=== PATIENT | female | born 1985 | race Caucasian/White ===

== ENCOUNTER 2021-06-18 13:39 | Day surgery (SDC) | payer SELFPAY ==
[2021-06-18 14:56] LABS: Fetal Membranes Rupture No Membranes Rupture (No Rupture)
[2021-06-19] MEDS ORDERED: hydrALAZINE 20 MG/ML VIAL SLOW IVP PRN (07:35)
== END 2021-06-18 18:00 | disposition home or self-care (01) ==
LOC: CSHLD/OP 13:39
PROVIDERS: ATTEND Student in an Organized Health Care Education/Training Program
DX: O47.1 False labor at or after 37 completed weeks of gestation (principal); O34.219 Maternal care for unspecified type scar from previous cesarean delivery; Z3A.38 38 weeks gestation of pregnancy; Z91.041 Radiographic dye allergy status
CPT/HCPCS: 84112

== ENCOUNTER 2021-06-25 01:26 | Inpatient (IN) | payer OTHER, SELFPAY ==
[2021-06-25 02:20] LABS: Hemoglobin 13.3 g/dL (12.0-15.5); Mean Corpuscular HGB CONC 33.6 g/dL (32.0-36.0); Mean Corpuscular Volume 95.2 fl (81.6-98.3); Mean Platelet Volume 10.8 fl (7.4-10.4); Platelet Count 185 10x3/uL (150-450); RBC Distribution Width 12.7 % (11.5-14.5); Red Blood Cell (RBC) Count 4.16 10x6/uL (3.90-5.03)
[2021-06-25] MEDS ORDERED: Fentanyl 2 mcg/Bup 0.1% Cadd 100 ML ONE (02:28)
[2021-06-25 02:46] LABS: Hep B Surf Ag Non-Reactive S/CO (NonReactive)
[2021-06-25 02:47] LABS: Syphilis Antibody Nonreactive (Nonreactive); Syphilis Antibody Index 0.02 S/CO (<1.00 Non-Reactive)
[2021-06-25 02:52] LABS: HBSAg Index 0.21 S/CO (0-0.99)
[2021-06-25] MEDS ORDERED: Methylergonovine 0.2 MG/ML VIAL IM PRN (03:00)
[2021-06-25] MEDS ORDERED: Ibuprofen 800 MG TAB PO PRN (03:00)
[2021-06-25] MEDS ORDERED: NS w/ Oxytocin 30 units 500 ML IV SCH ×2 (03:00)
[2021-06-25] MEDS ORDERED: Penicillin G Potassium 5 MILL.UNITS in Sodium Chloride 0.9% 100 ML IVPB SCH (03:00)
[2021-06-25] MEDS ORDERED: Carboprost 250 MCG/ML AMP IM PRN (03:00)
[2021-06-25] MEDS ORDERED: Ondansetron PF 4 MG/2 ML Vial IVP PRN ×3 (03:00→08:36)
[2021-06-25] MEDS ORDERED: NS w/ Oxytocin 30 units 500 ML IVPB SCH (03:00)
[2021-06-25] MEDS ORDERED: Promethazine HCl 25 MG/ML VIAL IM PRN ×3 (03:00→08:36)
[2021-06-25] MEDS ORDERED: Diphenoxylate HCl/Atropine Tablet PO PRN (03:00)
[2021-06-25] MEDS ORDERED: Lidocaine 1% (PF) 30 ML VIAL SC PRN (03:00)
[2021-06-25] MEDS ORDERED: Misoprostol 200 MCG TAB RC PRN (03:00)
[2021-06-25] MEDS ORDERED: HYDROcodone/Acetaminophen 5/325 mg Tablet PO PRN ×3 (03:00→08:36)
[2021-06-25] MEDS ORDERED: hydrALAZINE 20 MG/ML VIAL SLOW IVP PRN ×2 (03:00→08:36)
[2021-06-25] MEDS ORDERED: Butorphanol Tartrate 1 MG/ML VIAL SLOW IVP PRN (03:00)
[2021-06-25] MEDS ORDERED: Acetaminophen 500 MG TAB PO PRN (03:00)
[2021-06-25] MEDS ORDERED: Fentanyl 100 MCG/2 ML VIAL ONE (03:46)
[2021-06-25] MEDS ORDERED: diphenhydrAMINE 50 MG/ML VIAL IVP PRN (04:29)
[2021-06-25] MEDS ORDERED: Lactated Ringer's 500 ML IV PRN (04:29)
[2021-06-25] MEDS ORDERED: Hydrocerin (Eucerin) Cream 120 gm Jar TOP PRN (04:29)
[2021-06-25] MEDS ORDERED: Acetaminophen 325 MG TAB PO PRN (04:29)
[2021-06-25] MEDS ORDERED: ePHEDrine Sulfate 50 MG/10 ML VIAL SLOW IVP PRN (04:29)
[2021-06-25] MEDS ORDERED: Naloxone HCl 0.4 mg/ml Vial IVP PRN ×2 (04:29)
[2021-06-25] MEDS ORDERED: Communication Order-Pharmacy FS SCH (04:30)
[2021-06-25] MEDS ORDERED: Fentanyl 2 mcg/Bupivacaine 0.1% Cassette 100 ML EPIDURAL SCH (04:30)
[2021-06-25] MEDS ORDERED: Penicillin G 2.5 MILL.units 50 ML IVPB SCH (07:00)
[2021-06-25 07:03] LABS: SARS-CoV-2 NAA Rapid Test Not Detected (NotDetected)
[2021-06-25] MEDS ORDERED: diphenhydrAMINE 25 MG CAP PO PRN (08:36)
[2021-06-25] MEDS ORDERED: Benzocaine-Menthol 82.5 ML CAN TOP PRN (08:36)
[2021-06-25] MEDS ORDERED: Preparation H Ointment 28 GM TUBE PR PRN (08:36)
[2021-06-25] MEDS ORDERED: Milk Of Magnesia 30 ML UDCUP PO PRN (08:36)
[2021-06-25] MEDS ORDERED: Lanolin Ointment 7 GM TUBE TOP PRN (08:36)
[2021-06-25] MEDS ORDERED: Bisacodyl 10 MG SUPP PR PRN (08:36)
[2021-06-25] MEDS ORDERED: Boostrix 0.5 ML (Tdap) VIAL IM ONE (08:36)
[2021-06-25] MEDS: Ferrous Sulfate 325 MG TAB PO SCH ×2 (10:06→16:55)
[2021-06-25] MEDS: Docusate Calcium (SURFAK) 240 MG CAP PO SCH ×2 (10:45→21:34)
[2021-06-25] MEDS: Prenatal Vitamin 1 TAB PO SCH (10:45)
[2021-06-25] MEDS: Ibuprofen 800 MG TAB PO SCH ×2 (10:45→18:24)
[2021-06-25] MEDS ORDERED: NS w/ Oxytocin 30 units 500 ML ONE (12:10)
[2021-06-25] MEDS: HYDROcodone/Acetaminophen 5/325 mg Tablet PO PRN ×3 (13:03→19:05)
[2021-06-26] MEDS: Ibuprofen 800 MG TAB PO SCH ×2 (03:31→11:35)
[2021-06-26 07:55] VITALS: BP 96/50; TEMP 98
[2021-06-26] MEDS: Prenatal Vitamin 1 TAB PO SCH (08:37)
[2021-06-26] MEDS: Docusate Calcium (SURFAK) 240 MG CAP PO SCH (08:37)
[2021-06-26] MEDS: Ferrous Sulfate 325 MG TAB PO SCH (08:37)
[2021-06-26] MEDS: HYDROcodone/Acetaminophen 5/325 mg Tablet PO PRN (08:41)
== END 2021-06-26 14:10 | disposition home or self-care (01) | DRG 807 ==
LOC: CSHLD/OP 01:26 → CSHLD 02:07 → CSHPP 10:22
PROVIDERS: ADMIT Student in an Organized Health Care Education/Training Program; ATTEND Student in an Organized Health Care Education/Training Program
PROC: 10E0XZZ Delivery of Products of Conception, External Approach (ICD-10-PCS; principal; 2021-06-26)
PROC: 0HQ9XZZ Repair Perineum Skin, External Approach (ICD-10-PCS; 2021-06-26)
DX: O34.211 Maternal care for low transverse scar from previous cesarean delivery (principal); Z37.0 Single live birth; Z3A.39 39 weeks gestation of pregnancy; O70.0 First degree perineal laceration during delivery
CPT/HCPCS: 85027; 86780; 86850; 86900; 86901; 87340; J2405; J2540; J2590; J3010; J3490; U0002

== ENCOUNTER 2023-03-27 20:56 | Emergency (ER) | payer OTHER, SELFPAY ==
[2023-03-27 23:02] LABS: #Eosinphils 0.2 10x3/uL (0.0-0.5); #Monocytes 0.7 10x3/uL (0.0-1.1); #Neutrophils 7.3 10x3/uL (1.5-8.4); %Basophils 0.3 % (0.0-2.0); %Eosinophils 1.3 % (0.0-6.0); %Lymphocytes 29.8 % (18.0-47.0); %Monocytes 6.1 % (0.0-10.0); %Neutrophils 62.2 % (40.0-75.0); Hematocrit 40.1 % (34.9-44.5); Hemoglobin 13.3 g/dL (12.0-15.5); Mean Corpuscular HGB CONC 33.2 g/dL (32.0-36.0); Mean Corpuscular Hemoglobin 31.1 pg (27.0-33.0); Mean Corpuscular Volume 93.7 fl (81.6-98.3); Mean Platelet Volume 10.3 fl (7.4-10.4); Platelet Count 247 10x3/uL (150-450); RBC Distribution Width 13.9 % (11.5-14.5); Red Blood Cell (RBC) Count 4.28 10x6/uL (3.90-5.03); White Blood Cell (WBC) Count 11.7 10x3/uL (3.5-10.5)
[2023-03-27 23:11] LABS: ALT (SGPT) 25 U/L (8-55); AST (SGOT) 41 U/L (5-34); Albumin 4.3 g/dL (3.5-5.0); Alkaline Phosphatase 67 U/L (40-110); Anion Gap 11 mmol/L (10-20); BUN (Urea Nitrogen) 9 mg/dL (7.0-18.7); Bilirubin, Total 0.3 mg/dL (0.2-1.2); Calc. Creatinine Clearance 0 mL/min (70-130); Calcium 9.3 mg/dL (7.8-10.44); Carbon Dioxide 25 mmol/L (22-29); Chloride 103 mmol/L (98-107); Estimated GFR 118; Globulin 2.9 g/dL (2.4-3.5); Glucose 84 mg/dL (70-105); Potassium 3.6 mmol/L (3.5-5.1); Protein, Total 7.2 g/dL (6.0-8.3); Sodium 135 mmol/L (136-145)
[2023-03-27] MEDS ORDERED: Acetaminophen 500 MG TAB ONE (23:28)
[2023-03-28 00:30] LABS: Bilirubin Neg (Negative); Blood, Urine 50 (Negative); Clarity Clear (Clear); Glucose, Urine (Dipstick) Normal (Negative); Ketone, Urine Negative (Negative); Leukocyte 500 (Negative); Nitrite Negative (Negative); Protein, Urine (Dipstick) Negative (Neg-Trace); Specific Gravity, Urine 1.005 (1.005-1.030); Urobilinogen Normal mg/dL (Less than 2)
[2023-03-28 00:39] LABS: CAUTI Indications for Culture Pelvic or flank pain
[2023-03-28 00:40] LABS: Bacteria/HPF 3+ HPF (None Seen); Squamous Epithelial 0-3 HPF (0-3)
[2023-03-28 00:44] LABS: Urine Culture Reflex Yes Yes
[2023-03-28] MEDS ORDERED: Cephalexin 250 MG CAP ONE (01:58)
[2023-03-28] MEDS ORDERED: Cephalexin 500 MG CAP PO SCH (02:00)
[2023-03-28] MEDS ORDERED: Fluconazole 100 MG TAB PO SCH (02:15)
[2023-03-29 02:44] LABS: Chlamydia by PCR, EndoCx Swab Not Detected (NotDetected); GC by PCR, EndoCx Swab Not Detected (NotDetected)
== END 2023-03-28 02:15 | disposition home or self-care (01) ==
LOC: CSHERS 20:56
DX: O30.001 Twin pregnancy, unspecified number of placenta and unspecified number of amniotic sacs, first trimester (principal); O23.41 Unspecified infection of urinary tract in pregnancy, first trimester; N39.0 Urinary tract infection, site not specified; O98.811 Other maternal infectious and parasitic diseases complicating pregnancy, first trimester; B37.31 Acute candidiasis of vulva and vagina; Z3A.01 Less than 8 weeks gestation of pregnancy
CPT/HCPCS: 36415; 76856; 80053; 81001; 84702; 85025; 86900; 86901; 87086; 87480; 87491; 87510; 87591; 87660

== ENCOUNTER 2023-07-18 11:44 | Day surgery (SDC) | payer OTHER, SELFPAY ==
[2023-07-18 12:42] VITALS: BMI 32.5
[2023-07-18] MEDS ORDERED: hydrALAZINE 20 MG/ML VIAL SLOW IVP PRN (13:13)
[2023-07-18] MEDS ORDERED: Ondansetron PF 4 MG/2 ML Vial IVP SCH (13:15)
[2023-07-18] MEDS ORDERED: Lactated Ringer's 1,000 ML IV SCH (13:15)
[2023-07-18 13:48] LABS: SARS-CoV-2 NAA Rapid Test Not Detected (NotDetected)
[2023-07-18 14:32] LABS: #Eosinphils 0.1 10x3/uL (0.0-0.5); #Monocytes 0.4 10x3/uL (0.0-1.1); #Neutrophils 6.9 10x3/uL (1.5-8.4); %Basophils 0.1 % (0.0-2.0); %Eosinophils 1.1 % (0.0-6.0); %Monocytes 4.7 % (0.0-10.0); %Neutrophils 73.4 % (40.0-75.0); Hematocrit 35.4 % (34.9-44.5); Hemoglobin 11.9 g/dL (12.0-15.5); Mean Corpuscular HGB CONC 33.6 g/dL (32.0-36.0); Mean Corpuscular Volume 95.2 fl (81.6-98.3); Mean Platelet Volume 10.6 fl (7.4-10.4); Platelet Count 180 10x3/uL (150-450); RBC Distribution Width 14.6 % (11.5-14.5); Red Blood Cell (RBC) Count 3.72 10x6/uL (3.90-5.03); White Blood Cell (WBC) Count 9.4 10x3/uL (3.5-10.5)
[2023-07-18 14:53] LABS: ALT (SGPT) 17 U/L (8-55); AST (SGOT) 35 U/L (5-34); Albumin 3.2 g/dL (3.5-5.0); Alkaline Phosphatase 74 U/L (40-110); Anion Gap 13 mmol/L (10-20); BUN (Urea Nitrogen) 4 mg/dL (7.0-18.7); Bilirubin, Total 0.4 mg/dL (0.2-1.2); Calc. Creatinine Clearance 207 mL/min (70-130); Calcium 8.5 mg/dL (7.8-10.44); Carbon Dioxide 22 mmol/L (22-29); Chloride 106 mmol/L (98-107); Estimated GFR 126; Globulin 2.6 g/dL (2.4-3.5); Glucose 72 mg/dL (70-105); Potassium 4.5 mmol/L (3.5-5.1); Protein, Total 5.8 g/dL (6.0-8.3); Sodium 136 mmol/L (136-145)
== END 2023-07-18 15:38 | disposition home or self-care (01) ==
LOC: CSHERS 11:44 → CSHLD/OP 11:44 → EDSTATUS 12:28 → CSHLD/OP 15:38
PROVIDERS: ATTEND Obstetrics & Gynecology
DX: O21.2 Late vomiting of pregnancy (principal); O09.522 Supervision of elderly multigravida, second trimester; Z88.8 Allergy status to other drugs, medicaments and biological substances; Z3A.22 22 weeks gestation of pregnancy
CPT/HCPCS: 0241U; 36415; 80053; 85025; 96360; 96361; 99282; J2405

== ENCOUNTER 2023-08-29 11:52 | Day surgery (SDC) | payer OTHER ==
[2023-08-29] MEDS ORDERED: hydrALAZINE 20 MG/ML VIAL SLOW IVP PRN (12:46)
[2023-08-29] MEDS: Acetaminophen 500 MG TAB PO SCH (12:58)
[2023-08-29 13:19] LABS: Bilirubin Neg (Negative); Blood, Urine Negative (Negative); Glucose, Urine (Dipstick) Normal (Negative); Ketone, Urine Negative (Negative); Leukocyte 100 (Negative); Nitrite Negative (Negative); Protein, Urine (Dipstick) Negative (Neg-Trace); Urobilinogen Normal mg/dL (Less than 2)
[2023-08-29 13:39] LABS: Clarity Hazy (Clear)
[2023-08-29 13:42] LABS: #Eosinphils 0.1 10x3/uL (0.0-0.5); #Monocytes 0.5 10x3/uL (0.0-1.1); #Neutrophils 6.7 10x3/uL (1.5-8.4); %Basophils 0.3 % (0.0-2.0); %Eosinophils 1.2 % (0.0-6.0); %Lymphocytes 21.6 % (18.0-47.0); %Monocytes 5.7 % (0.0-10.0); %Neutrophils 70.5 % (40.0-75.0); Hematocrit 34.3 % (34.9-44.5); Hemoglobin 11.9 g/dL (12.0-15.5); Mean Corpuscular HGB CONC 34.7 g/dL (32.0-36.0); Mean Corpuscular Hemoglobin 32.2 pg (27.0-33.0); Platelet Count 196 10x3/uL (150-450); RBC Distribution Width 14.3 % (11.5-14.5); Red Blood Cell (RBC) Count 3.69 10x6/uL (3.90-5.03); White Blood Cell (WBC) Count 9.5 10x3/uL (3.5-10.5)
[2023-08-29 13:49] LABS: Bacteria/HPF 2+ HPF (None Seen); CAUTI Indications for Culture Pregnancy; RBC/HPF 0-3 HPF (0-3)
[2023-08-29 13:50] LABS: Mucous/LPF 1+ LPF (<2+)
[2023-08-29 13:51] LABS: Urine Culture Reflex Yes Yes
[2023-08-29 14:02] LABS: ALT (SGPT) 20 U/L (8-55); AST (SGOT) 39 U/L (5-34); Alkaline Phosphatase 127 U/L (40-110); Anion Gap 13 mmol/L (10-20); BUN (Urea Nitrogen) 5 mg/dL (7.0-18.7); Bilirubin, Total 0.2 mg/dL (0.2-1.2); Calc. Creatinine Clearance 0 mL/min (70-130); Calcium 8.7 mg/dL (7.8-10.44); Carbon Dioxide 19 mmol/L (22-29); Chloride 106 mmol/L (98-107); Estimated GFR 119; Glucose 89 mg/dL (70-105); Potassium 3.8 mmol/L (3.5-5.1); Sodium 134 mmol/L (136-145)
[2023-08-29] MEDS ORDERED: Lactated Ringer's 1,000 ML IV SCH (14:45)
[2023-08-29] MEDS: CEFAZOLIN 2 GM in Sodium Chloride 0.9% 100 ML IVPB SCH (14:54)
== END 2023-08-29 16:37 | disposition home or self-care (01) ==
LOC: CSHLD/OP 11:52
PROVIDERS: ATTEND Student in an Organized Health Care Education/Training Program
DX: O47.03 False labor before 37 completed weeks of gestation, third trimester (principal); O99.891 Other specified diseases and conditions complicating pregnancy; R51.9 Headache, unspecified; O09.523 Supervision of elderly multigravida, third trimester; O30.043 Twin pregnancy, dichorionic/diamniotic, third trimester; O00.01 Abdominal pregnancy with intrauterine pregnancy; O23.43 Unspecified infection of urinary tract in pregnancy, third trimester; O99.343 Other mental disorders complicating pregnancy, third trimester; F53.0 Postpartum depression; O34.211 Maternal care for low transverse scar from previous cesarean delivery; Z79.899 Other long term (current) drug therapy; Z79.82 Long term (current) use of aspirin; Z91.041 Radiographic dye allergy status; Z3A.28 28 weeks gestation of pregnancy
CPT/HCPCS: 36415; 80053; 81001; 82570; 83036; 84156; 85025; 87086; 96360; 96365; 99282; J3490